=== PATIENT | female | born 1940 ===

== ENCOUNTER 2016-08-26 15:35 | Emergency (ER) | payer MEDICARE ==
[2016-08-26 15:45] VITALS: RESP 18; TEMP 98.1
--- NOTE | 2016-08-26 16:01 | ED PDOC ---
HPI: Headache Time Seen by Provider: 08/26/16 15:51 Chief Complaint (Nursing): Headache Additional Complaint(s): Patient is a 76 y/o F presenting with headache. Patient reports a 4 day history of L parietal/occiptal pain. She reports that the pain is mild but persistent so she presented to the ED. She reports taking a naproxen today with some relief. She reports that the pain is worse when she turns her head to the L. Denies fever, neck pain, vision change, ear pain, dental pain, chest pain, shortness of breath, weakness, numbness or tingling. She denies trauma. Patient had normal MRI in February for vertigo. Denies current symptoms of vertigo Past Medical History Vital Signs: Last Vital Signs Temp 98.1 F 08/26/16 15:42 Pulse 80 08/26/16 15:42 Resp 18 08/26/16 15:42 BP 153/78 H 08/26/16 15:42 Pulse Ox 100 08/26/16 15:42 - Medical History PMH: HTN - Surgical History Surgical History: - Family History Family History: States: Unknown Family Hx - Immunization History Hx Tetanus Toxoid Vaccination: No Hx Influenza Vaccination: No Hx Pneumococcal Vaccination: No - Home Medications Home Medications: Ambulatory Orders Medication Instructions Recorded traMADol [Ultram] 50 mg PO TID PRN #15 tab 04/30/15 - Allergies Allergies/Adverse Reactions: Allergies Allergy/AdvReac Type Severity Reaction Status Date / Time No Known Allergies Allergy Verified 05/21/15 18:31 Physical Exam - Physical Exam Appears: Positive for: Well, Non-toxic, No Acute Distress Head Exam: Positive for: ATRAUMATIC, NORMAL INSPECTION, NORMOCEPHALIC Skin: Positive for: Normal Color Eye Exam: Positive for: Normal appearance, EOMI, PERRL ENT: Positive for: Normal ENT Inspection, TM Is/Are (WNL), Other (no temporal tenderness. muscle spasm to L side of neck). Negative for: Pharyngeal Erythema , Tonsillar Exudate, Tonsillar Swelling Neck: Positive for: Normal, Painless ROM, Supple. Negative for: Pain On Movement Of Neck Cardiovascular/Chest: Positive for: Regular Rate, Rhythm. Negative for: Edema, Murmur Respiratory: Positive for: Normal Breath Sounds. Negative for: Rales, Rhonchi, Stridor Gastrointestinal/Abdominal: Positive for: Soft. Negative for: Tenderness, Mass , Distended Extremity: Positive for: Normal ROM (5/5 strength in upper and lowere extremities) Neurologic/Psych: Positive for: Alert, manager trainee II-XII, Oriented, Gait (steady). Negative for: Facial Droop - Laboratory Results Result Diagrams: 08/26/16 16:40 08/26/16 17:25 - ECG O2 Sat by Pulse Oximetry: 100 Medical Decision Making Medical Decision Making: Patient has mild headache. She is neurologically intact. She is resting in NAD. She has no temporal tenderness and no neuro deficits CT head to r/o mass reglan, tylenol, IVF Labs reeval 6:15PM CT head shows "No acute intracranial abnormalities. No significant findings to account for the clinical presentation.No significant interval change compared to the prior examinations." Patient was also given toradol and valium due to concern over muscle spasm. She reports headache is resolved and wants to go home. I spoke with patient and family at length and gave them detailed return instructions. Disposition - Clinical Impression Clinical Impression: Headache - Disposition Disposition: Routine/Home Disposition Time: 18:16 Condition: GOOD Additional Instructions: Return immediately with any worsening symptoms. Follow-up with PMD within 2 days. Instructions: Acute Headache (ED) Print Language: KYRGYZ
[2016-08-26] MEDS ORDERED: Sodium Chloride 0.9% 500 ML IV ONE (16:02)
--- NOTE | 2016-08-26 17:13 | CT ---
PROCEDURE: CT HEAD WITHOUT CONTRAST. HISTORY: L sided headache COMPARISON: 05/21/2015. TECHNIQUE: Axial computed tomography images were obtained through the head/brain without intravenous contrast. Radiation dose: Total exam DLP = 830.08 mGy-cm. This CT exam was performed using one or more of the following dose reduction techniques: Automated exposure control, adjustment of the mA and/or kV according to patient size, and/or use of iterative reconstruction technique. FINDINGS: HEMORRHAGE: No intracranial hemorrhage. BRAIN: No significant interval change compared to the prior examination(s). No atrophy or chronic microvascular ischemic changes. VENTRICLES: Unremarkable. No hydrocephalus. CALVARIUM: Unremarkable. PARANASAL SINUSES: Unremarkable as visualized. No significant inflammatory changes. MASTOID AIR CELLS: Unremarkable as visualized. No inflammatory changes. OTHER FINDINGS: None. IMPRESSION: No acute intracranial abnormalities. No significant findings to account for the clinical presentation.No significant interval change compared to the prior examination(s).
[2016-08-26 17:37] LABS: BASO % 0.6 % (0.0-2.0); EOS # 0.1 K/uL (0.0-0.7); EOS % 1.8 % (0.0-4.0); HEMOGLOBIN 11.6 g/dL (12.0-16.0); LYMPH # 2.2 K/uL (1.0-4.3); LYMPH % 37.5 % (20.0-40.0); MEAN CELL VOLUME 82.1 fl (81.0-99.0); MEAN CORPUSCULAR HEMOGLOBIN 26.1 pg (27.0-31.0); MEAN CORPUSCULAR HGB CONC 31.8 g/dL (33.0-37.0); MEAN PLATELET VOLUME 9.8 fl (7.2-11.7); MONO # 0.7 K/uL (0.0-0.8); NEUT # 2.9 K/uL (1.8-7.0); NEUT % 49.1 % (50.0-75.0); RBC 4.43 Mil/uL (3.80-5.20); RED CELL DISTRIBUTION WIDTH 15.2 % (11.5-14.5)
[2016-08-26 17:47] LABS: ALB/GLOB RATIO 1.2 (1.0-2.1); ALBUMIN 4.4 g/dL (3.5-5.0); ALT/SGPT 23 U/L (9-52); AST/SGOT 28 U/L (14-36); BLOOD UREA NITROGEN 18 mg/dl (7-17); CALCIUM 9.7 mg/dL (8.4-10.2); GFR AFRICAN-AMERICAN > 60; GFR NON-AFRICAN AMERICAN > 60
[2016-08-26 18:39] VITALS: BP 131/63; PULSE 69
[2016-08-26 18:41] VITALS: O2SAT 100
== END 2016-08-26 18:39 | disposition home or self-care (01) ==
LOC: H.ER 15:35
DX: I10 Essential (primary) hypertension (principal); R51 Headache
CPT/HCPCS: 70450; 80053; 85025; 96361; 96374; 96375; 99284; J1885; J2765; J7040

== ENCOUNTER 2018-06-06 11:06 | Inpatient (IN) | payer MEDICARE ==
[2018-06-06 11:15] VITALS: BMI 27.8
[2018-06-06] MEDS ORDERED: Bacitracin 500 Units/gm Oint Foilpak UD ONE (12:23)
[2018-06-06 12:33] LABS: BASO % 0.9 % (0.0-2.0); HEMOGLOBIN 11.4 g/dL (12.0-16.0); LYMPH # 1.2 K/uL (1.0-4.3); LYMPH % 27.5 % (20.0-40.0); MEAN CELL VOLUME 82.6 fl (81.0-99.0); MEAN CORPUSCULAR HEMOGLOBIN 26.7 pg (27.0-31.0); MEAN CORPUSCULAR HGB CONC 32.4 g/dL (33.0-37.0); MEAN PLATELET VOLUME 9.6 fl (7.2-11.7); MONO # 0.4 K/uL (0.0-0.8); MONO % 9.6 % (0.0-10.0); NEUT # 2.7 K/uL (1.8-7.0); RBC 4.26 Mil/uL (3.80-5.20); RED CELL DISTRIBUTION WIDTH 15.7 % (11.5-14.5); WHITE BLOOD COUNT 4.4 K/uL (4.8-10.8)
[2018-06-06 12:43] LABS: BLOOD UREA NITROGEN 14 mg/dl (7-17); GFR NON-AFRICAN AMERICAN > 60
[2018-06-06 12:44] LABS: ALB/GLOB RATIO 1.3 (1.0-2.1); ALBUMIN 4.4 g/dL (3.5-5.0); ALT/SGPT 17 U/L (9-52); AST/SGOT 29 U/L (14-36); CALCIUM 9.9 mg/dL (8.4-10.2)
--- NOTE | 2018-06-06 13:03 | CT ---
Date of service: 06/06/2018 PROCEDURE: CT HEAD WITHOUT CONTRAST. HISTORY: syncope COMPARISON: 08/26/2016 TECHNIQUE: Axial computed tomography images were obtained through the head/brain without intravenous contrast. Radiation dose: Total exam DLP = 842.57 mGy-cm. This CT exam was performed using one or more of the following dose reduction techniques: Automated exposure control, adjustment of the mA and/or kV according to patient size, and/or use of iterative reconstruction technique. FINDINGS: HEMORRHAGE: No intracranial hemorrhage. BRAIN: No mass effect or edema. No atrophy or chronic microvascular ischemic changes. VENTRICLES: Unremarkable. No hydrocephalus. CALVARIUM: Unremarkable. PARANASAL SINUSES: Unremarkable as visualized. No significant inflammatory changes. MASTOID AIR CELLS: Unremarkable as visualized. No inflammatory changes. OTHER FINDINGS: None. IMPRESSION: Normal CT of the Head. No intracranial mass, hemorrhage or evidence of acute infarct.
--- NOTE | 2018-06-06 13:17 | RAD ---
Date of service: 06/06/2018 HISTORY: Syncope. COMPARISON: No prior. FINDINGS: LUNGS: Atelectasis at the lung bases, linear atelectasis/scarring right upper lobe. PLEURA: No significant pleural effusion identified, no pneumothorax apparent. CARDIOVASCULAR: No atherosclerotic calcification present Normal. OSSEOUS STRUCTURES: No significant abnormalities. VISUALIZED UPPER ABDOMEN: Normal. OTHER FINDINGS: None. IMPRESSION: No active disease.
--- NOTE | 2018-06-06 13:46 | ED PDOC ---
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 Patient reports she felt dizzy and fell on someone without any head injury or falling to the ground. She takes 81mg Aspirin per day. Also reports, prior to the fall, she felt a sharp electric pain on her leg that resolved immediately. Otherwise, she denies any recent illness, chest pain, nausea, vomiting, diarrhea or abdominal pain. PMD: Non [facility] Provider Past Medical History Reviewed: Historical Data, Nursing Documentation, Vital Signs Vital Signs: Last Vital Signs Temp 98.4 F 06/06/18 11:14 Pulse 62 06/06/18 11:14 Resp 19 06/06/18 11:14 BP 122/66 06/06/18 11:14 Pulse Ox 99 06/06/18 11:14 - Medical History PMH: HTN Other PMH: vertigo - Surgical History Surgical History: - Family History Family History: States: Unknown Family Hx - Social History Current smoker - smoking cessation education provided: No Alcohol: None Drugs: Denies - Immunization History Hx Tetanus Toxoid Vaccination: No Hx Influenza Vaccination: No Hx Pneumococcal Vaccination: No - Home Medications Home Medications: Ambulatory Orders Medication Instructions Recorded Aspirin [Ecotrin] 81 mg PO Q48H 06/06/18 Ergocalciferol (Vitamin D2) 50,000 unit PO SUN 06/06/18 [Vitamin D2] Meclizine [Meclizine*] 25 mg PO Q8 PRN 06/06/18 Rosuvastatin Calcium [Crestor] 5 mg PO HS 06/06/18 Timolol 0.5% Ophth [Timoptic 0.5% 1 drop EACHEYE DAILY 06/06/18 Ophth Soln] amLODIPine [Norvasc] 10 mg PO DAILY 06/06/18 - Allergies Allergies/Adverse Reactions: Allergies Allergy/AdvReac Type Severity Reaction Status Date / Time No Known Allergies Allergy Verified 04/06/16 18:31 Review of Systems ROS Statement: Except As Marked, All Systems Reviewed And Found Negative Cardiovascular: Negative for: Chest Pain Respiratory: Negative for: Shortness of Breath Gastrointestinal: Negative for: Nausea, Vomiting, Abdominal Pain, Diarrhea Musculoskeletal: Negative for: Back Pain Neurological: Positive for: Dizziness, Other (syncope ) Physical Exam - Reviewed Nursing Documentation Reviewed: Yes Vital Signs Reviewed: Yes - Physical Exam Appears: Positive for: Well, Non-toxic, No Acute Distress Head Exam: Positive for: ATRAUMATIC, NORMAL INSPECTION, NORMOCEPHALIC Skin: Positive for: Normal Color, Warm, Dry. Negative for: Rash Eye Exam: Positive for: EOMI, Normal appearance, PERRL ENT: Positive for: Normal ENT Inspection Neck: Positive for: Normal, Painless ROM, Supple. Negative for: Decreased ROM Cardiovascular/Chest: Positive for: Regular Rate, Rhythm. Negative for: Murmur Respiratory: Positive for: Normal Breath Sounds. Negative for: Respiratory Distress Gastrointestinal/Abdominal: Positive for: Normal Exam, Soft. Negative for: Tenderness Back: Positive for: Normal Inspection Extremity: Positive for: Normal ROM. Negative for: Tenderness, Pedal Edema, Deformity Neurological/Psych: Positive for: Awake, Alert, Normal Tone, Symmetric/Intact Strength, Oriented (x3), Gait (steady), kitchen and bath designer II-XII (intact). Negative for: Lethargic, Listless, Motor/Sensory Deficits, Facial Droop - Laboratory Results Result Diagrams: 06/06/18 12:29 06/06/18 12:29 Lab Results: Troponin I < 0.0120 ng/mL (0.00-0.120) 06/06/18 12:29 Total Bilirubin 0.4 mg/dl (0.2-1.3) 06/06/18 12:29 AST 29 U/L (14-36) 06/06/18 12:29 ALT 17 U/L (9-52) 06/06/18 12:29 Alkaline Phosphatase 71 U/L (38-126) 06/06/18 12:29 Total Protein 7.7 G/DL (6.3-8.2) 06/06/18 12:29 Albumin 4.4 g/dL (3.5-5.0) 06/06/18 12:29 Globulin 3.3 gm/dL (2.2-3.9) 06/06/18 12:29 Albumin/Globulin Ratio 1.3 (1.0-2.1) 06/06/18 12:29 - ECG O2 Sat by Pulse Oximetry: 99 (RA) Pulse Ox Interpretation: Normal Medical Decision Making Medical Decision Making: Time: 12:07 Impression: syncope rule out neurologic vs cardiac Plan: Head w/o contrast CT CMP Troponin CBC w/ differential Chest portable [RAD] Reevaluation 12:59 PROCEDURE: CT HEAD WITHOUT CONTRAST. HISTORY: syncope COMPARISON: 08/26/2016 TECHNIQUE: Axial computed tomography images were obtained through the head/brain without intravenous contrast. Radiation dose: Total exam DLP = 842.57 mGy-cm. This CT exam was performed using one or more of the following dose reduction techniques: Automated exposure control, adjustment of the mA and/or kV according to patient size, and/or use of iterative reconstruction technique. FINDINGS: HEMORRHAGE: No intracranial hemorrhage. BRAIN: No mass effect or edema. No atrophy or chronic microvascular ischemic changes. VENTRICLES: Unremarkable. No hydrocephalus. CALVARIUM: Unremarkable. PARANASAL SINUSES: Unremarkable as visualized. No significant inflammatory changes. MASTOID AIR CELLS: Unremarkable as visualized. No inflammatory changes. OTHER FINDINGS: None. IMPRESSION: Normal CT of the Head. No intracranial mass, hemorrhage or evidence of acute infarct. 13:14 FINDINGS: LUNGS: Atelectasis at the lung bases, linear atelectasis/scarring right upper lobe. PLEURA: No significant pleural effusion identified, no pneumothorax apparent. CARDIOVASCULAR: No atherosclerotic calcification present Normal. OSSEOUS STRUCTURES: No significant abnormalities. VISUALIZED UPPER ABDOMEN: Normal. OTHER FINDINGS: None. IMPRESSION: No active disease. 13:26 labs reviewed Case discussed with Dr. Rodriguez who covers Dr pulido pts pcp, who requested neurology consult with Dr. Antony and Dr. Giles for cardiology consult. Patient will be admitted for syncope. i explained plan to patient who understood and agreeable. Scribe Attestation: Documented by Zain Willoughby, acting as a scribe for Prem Edwards MD. Provider Scribe Attestation: All medical record entries made by the Scribe were at my direction and personally dictated by me. I have reviewed the chart and agree that the record accurately reflects my personal performance of the history, physical exam, medical decision making, and the department course for this patient. I have also personally directed, reviewed, and agree with the discharge instructions and disposition. Disposition - Clinical Impression Clinical Impression: Syncope - Patient ED Disposition Is Patient to be Admitted: Yes Counseled Patient/Family Regarding: Studies Performed, Diagnosis - Disposition Disposition Time: 01:26 Condition: STABLE
--- NOTE | 2018-06-06 16:35 | CP.PCM.CON ---
History of Present Illness - History of Present Illness History of Present Illness: Consultation for syncope HPI 78-year-old female with history of vertigo who brought to the emergency room after having an episode of syncope patient apparently felt dizzy and fell on somewhat without having sustaining any head injury or falling to the ground. Prior to the fall patient had an episode of sharp electrical pain radiating down the leg otherwise denies having any recent episodes of illness chest pain nausea vomiting diarrhea abdominal discomfort. Patient's home medications include Norvasc 10 mg p.o. daily Crestor 5 mg aspirin 81 mg meclizine vitamin D 2 NT model eyedrops. Patient apparently fell down and hit her knee and lost consciousness for a few minutes. [place] a little nauesous after she woke up Review of Systems - Review of Systems Systems not reviewed;Unavailable: Acuity of Condition - Constitutional Constitutional: As Per HPI - EENT Eyes: As Per HPI Ears: As Per HPI Nose/Mouth/Throat: As Per HPI - Breasts Breasts: As Per HPI - Cardiovascular Cardiovascular: As Per HPI - Respiratory Respiratory: As Per HPI - Gastrointestinal Gastrointestinal: As Per HPI - Genitourinary Genitourinary: As Per HPI - Reproductive: Female Reproductive:Female: As Per HPI - Menstruation Menstruation: As Per HPI - Musculoskeletal Musculoskeletal: As Per HPI - Integumentary Integumentary: As Per HPI - Neurological Neurological: As Per HPI - Psychiatric Psychiatric: As Per HPI - Endocrine Endocrine: As Per HPI - Hematologic/Lymphatic Hematologic: As Per HPI Past Patient History - Past Social History Alcohol: None Drugs: Denies - CARDIAC Hx Hypertension: Yes - PSYCHIATRIC Hx Substance Use: No Meds Allergies/Adverse Reactions: Allergies Allergy/AdvReac Type Severity Reaction Status Date / Time No Known Allergies Allergy Verified 05/21/15 18:31 Physical Exam - Constitutional Appears: Well - Head Exam Head Exam: ATRAUMATIC, NORMAL INSPECTION, NORMOCEPHALIC - Eye Exam Eye Exam: EOMI, Normal appearance, PERRL Pupil Exam: NORMAL ACCOMODATION, PERRL - ENT Exam ENT Exam: Mucous Membranes Moist, Normal Exam - Neck Exam Neck exam: Positive for: Normal Inspection - Respiratory Exam Respiratory Exam: Clear to Auscultation Bilateral, NORMAL BREATHING PATTERN - Cardiovascular Exam Cardiovascular Exam: REGULAR RHYTHM, RRR, +S1, +S2, Systolic Murmur - GI/Abdominal Exam GI & Abdominal Exam: Normal Bowel Sounds, Soft. absent: Tenderness - Extremities Exam Extremities exam: Positive for: normal inspection - Back Exam Back exam: NORMAL INSPECTION - Neurological Exam Neurological exam: Alert, CN II-XII Intact, Normal Gait, Oriented x3, Reflexes Normal - Psychiatric Exam Psychiatric exam: Normal Affect, Normal Mood - Skin Skin Exam: Dry, Intact, Normal Color, Warm Results - Vital Signs Recent Vital Signs: Last Vital Signs Temp 98.1 F 06/06/18 15:06 Pulse 72 06/06/18 15:06 Resp 20 06/06/18 15:06 BP 121/57 L 06/06/18 15:06 Pulse Ox 99 06/06/18 16:07 - Labs Result Diagrams: 06/07/18 04:55 06/07/18 04:55 Labs: Laboratory Results - last 24 hr 06/06/18 06/06/18 12:29 12:29 WBC 4.4 L RBC 4.26 Hgb 11.4 L Hct 35.2 MCV 82.6 MCH 26.7 L MCHC 32.4 L RDW 15.7 H Plt Count 196 MPV 9.6 Neut % (Auto) 61.0 Lymph % (Auto) 27.5 [place] % (Auto) 9.6 Eos % (Auto) 1.0 Baso % (Auto) 0.9 Neut # (Auto) 2.7 Lymph # (Auto) 1.2 [place] # (Auto) 0.4 Eos # (Auto) 0.0 Baso # (Auto) 0.0 Sodium 138 Potassium 5.1 H Chloride 102 Carbon Dioxide 28 Anion Gap 13 BUN 14 Creatinine 0.8 Est GFR ( Amer) > 60 Est GFR (Non-Af Amer) > 60 Random Glucose 120 H Calcium 9.9 Total Bilirubin 0.4 AST 29 ALT 17 Alkaline Phosphatase 71 Troponin I < 0.0120 Total Protein 7.7 Albumin 4.4 Globulin 3.3 Albumin/Globulin Ratio 1.3 Assessment & Plan (1) Syncope Assessment and Plan: echo telemetry orthostatics Status: Acute (2) HTN (hypertension) Status: Acute (3) Contusion, lip Status: Acute (4) Knee contusion Status: Acute (5) Pain of left lower extremity Status: Acute
[2018-06-06 18:59] LABS: URINE BILIRUBIN NEGATIVE (NEGATIVE); URINE BLOOD NEGATIVE (NEGATIVE); URINE CLARITY CLEAR (Clear); URINE COLOR STRAW (YELLOW); URINE GLUCOSE (UA) NEG (NEGATIVE); URINE LEUKOCYTE ESTERASE NEG Leu/uL (Negative); URINE PROTEIN NEGATIVE (NEGATIVE); URINE UROBILINOGEN 0.2-1.0 mg/dL (0.2-1.0)
[2018-06-07 05:44] LABS: BASO % 0.6 % (0.0-2.0); BLOOD UREA NITROGEN 14 mg/dl (7-17); CALCIUM 9.8 mg/dL (8.4-10.2); EOS # 0.1 K/uL (0.0-0.7); EOS % 1.4 % (0.0-4.0); GFR NON-AFRICAN AMERICAN > 60; HDL CHOLESTEROL 53 MG/DL (30-70); HEMOGLOBIN 11.4 g/dL (12.0-16.0); LYMPH # 1.8 K/uL (1.0-4.3); LYMPH % 39.5 % (20.0-40.0); MEAN CELL VOLUME 82.3 fl (81.0-99.0); MEAN CORPUSCULAR HEMOGLOBIN 26.5 pg (27.0-31.0); MEAN CORPUSCULAR HGB CONC 32.2 g/dL (33.0-37.0); MONO # 0.4 K/uL (0.0-0.8); MONO % 9.5 % (0.0-10.0); NEUT # 2.3 K/uL (1.8-7.0); NRBC % 0.1 % (0.0-0.0); RBC 4.29 Mil/uL (3.80-5.20); RED CELL DISTRIBUTION WIDTH 15.6 % (11.5-14.5); WHITE BLOOD COUNT 4.7 K/uL (4.8-10.8)
[2018-06-07 05:54] LABS: LDL CHOLESTEROL 118 mg/dL (0-129)
[2018-06-07] MEDS: Enoxaparin 40 mg Syringe SC SCH (08:00)
--- NOTE | 2018-06-07 08:30 | CP.PCM.HP ---
<Tim Hollis - Last Filed: 06/07/18 14:47> History of Present Illness - History of Present Illness History of Present Illness: 78 y/o F with a PMHx of HTN and HLD was admitted due to syncopal episode yesterday morning ~10am. Pt explains feeling dizzy and sharp pain fron L ankle to L knee while sitting down, then fell to the ground on her L knee. Pt believes she lost consciousness for a few seconds. Pt felt nauseous and vomited after episode. Pt reports a similar previous episode 1 year ago. Pt lives alone. Pt denies fever, chills, cough, chest pain, SOB, abdominal pain, rash or peripheral edema. NKDA PMD: Dr Kevin PMHx: HTN, HLD, vertigo PSHx: 1x, L breast lumpectomy. SHx: Never tobacco, no alcohol and no rec drugs. Pt lives alone and reports being a [employer]. ED Course: --VS stable at presentation --CXR: No active disease. --Head CT: No intracranial mass, hemorrhage or evidence of acute infarct. Present on Admission - Present on Admission Any Indicators Present on Admission: No Review of Systems - Constitutional Constitutional: absent: Chills, Fever, Lethargy, Malaise, Weight Loss - EENT Eyes: absent: Blurred Vision, Change in Vision Nose/Mouth/Throat: absent: Nasal Congestion, Sore Throat, Neck Mass - Cardiovascular Cardiovascular: absent: Chest Pain, Claudication, Dyspnea - Respiratory Respiratory: absent: Cough, Dyspnea - Gastrointestinal Gastrointestinal: absent: Abdominal Pain, Diarrhea, Nausea, Vomiting - Genitourinary Genitourinary: absent: Dysuria, Flank Pain Past Patient History - Past Medical History & Family History Past Medical History?: Yes - Past Social History Smoking Status: Never Smoked - CARDIAC Hx Hypertension: Yes - HEMATOLOGICAL/ONCOLOGICAL Hx AIDS: No Hx Human Immunodeficiency Virus (HIV): No - MUSCULOSKELETAL/RHEUMATOLOGICAL Hx Falls: No - PSYCHIATRIC Hx Substance Use: No - ANESTHESIA Hx Anesthesia: No Hx Anesthesia Reactions: No Hx Malignant Hyperthermia: No Has any member of the family had a problem w/ anesthesia?: No Meds Allergies/Adverse Reactions: Allergies Allergy/AdvReac Type Severity Reaction Status Date / Time No Known Allergies Allergy Verified 05/21/15 18:31 Physical Exam - Constitutional Appears: No Acute Distress - Head Exam Head Exam: ATRAUMATIC, NORMAL INSPECTION - Eye Exam Eye Exam: EOMI - ENT Exam ENT Exam: Mucous Membranes Moist - Neck Exam Neck exam: Positive for: Full Rom, Normal Inspection. Negative for: Lymphadenopathy, Thyromegaly - Respiratory Exam Respiratory Exam: NORMAL BREATHING PATTERN. absent: Rales, Rhonchi, Wheezes - Cardiovascular Exam Cardiovascular Exam: +S1, +S2 - GI/Abdominal Exam GI & Abdominal Exam: Soft. absent: Distended, Guarding, Rebound, Tenderness - Extremities Exam Extremities exam: Positive for: full ROM. Negative for: calf tenderness, pedal edema, tenderness - Neurological Exam Neurological exam: Alert, Oriented x3 Results - Vital Signs Recent Vital Signs: Last Vital Signs Temp 98.2 F 06/07/18 07:51 Pulse 69 06/07/18 07:51 Resp 18 06/07/18 07:51 BP 119/53 L 06/07/18 07:51 Pulse Ox 95 06/07/18 07:51 - Labs Result Diagrams: 06/07/18 04:55 06/07/18 04:55 Labs: Laboratory Results - last 24 hr 06/06/18 06/06/18 06/06/18 12:29 12:29 18:45 WBC 4.4 L RBC 4.26 Hgb 11.4 L Hct 35.2 MCV 82.6 MCH 26.7 L MCHC 32.4 L RDW 15.7 H Plt Count 196 MPV 9.6 Neut % (Auto) 61.0 Lymph % (Auto) 27.5 [place] % (Auto) 9.6 Eos % (Auto) 1.0 Baso % (Auto) 0.9 Neut # (Auto) 2.7 Lymph # (Auto) 1.2 [place] # (Auto) 0.4 Eos # (Auto) 0.0 Baso # (Auto) 0.0 Sodium 138 Potassium 5.1 H Chloride 102 Carbon Dioxide 28 Anion Gap 13 BUN 14 Creatinine 0.8 Est GFR ( Amer) > 60 Est GFR (Non-Af Amer) > 60 Random Glucose 120 H Calcium 9.9 Total Bilirubin 0.4 AST 29 ALT 17 Alkaline Phosphatase 71 Troponin I < 0.0120 Total Protein 7.7 Albumin 4.4 Globulin 3.3 Albumin/Globulin Ratio 1.3 Triglycerides Cholesterol LDL Cholesterol Direct HDL Cholesterol Vitamin B12 Urine Color Straw Urine Clarity Clear Urine pH 7.0 Ur Specific [place] 1.010 Urine Protein Negative Urine Glucose (UA) Neg Urine Ketones Negative Urine Blood Negative Urine Nitrate Negative Urine Bilirubin Negative Urine Urobilinogen 0.2-1.0 Ur Leukocyte Esterase Neg Urine Microscopic WBC 2 06/06/18 06/07/18 06/07/18 20:18 04:55 04:55 WBC 4.7 L RBC 4.29 Hgb 11.4 L Hct 35.3 MCV 82.3 MCH 26.5 L MCHC 32.2 L RDW 15.6 H Plt Count 195 MPV 10.0 Neut % (Auto) 49.0 L Lymph % (Auto) 39.5 [place] % (Auto) 9.5 Eos % (Auto) 1.4 Baso % (Auto) 0.6 Neut # (Auto) 2.3 Lymph # (Auto) 1.8 [place] # (Auto) 0.4 Eos # (Auto) 0.1 Baso # (Auto) 0.0 Sodium 140 Potassium 4.2 Chloride 102 Carbon Dioxide 29 Anion Gap 13 BUN 14 Creatinine 0.7 Est GFR ( Amer) > 60 Est GFR (Non-Af Amer) > 60 Random Glucose 118 H Calcium 9.8 Total Bilirubin AST ALT Alkaline Phosphatase Troponin I < 0.0120 Total Protein Albumin Globulin Albumin/Globulin Ratio Triglycerides 88 Cholesterol 203 H LDL Cholesterol Direct 118 HDL Cholesterol 53 Vitamin B12 221 L Urine Color Urine Clarity Urine pH Ur Specific [place] Urine Protein Urine Glucose (UA) Urine Ketones Urine Blood Urine Nitrate Urine Bilirubin Urine Urobilinogen Ur Leukocyte Esterase Urine Microscopic WBC Assessment & Plan - Assessment and Plan (Free Text) Assessment: 78 y/o F with a PMHx of HTN and HLD was admitted for evaluation and management of syncope. --Head CT: No intracranial mass, hemorrhage or evidence of acute infarct. --Troponin negative x2. PLAN: >Syncope --Afebrile, VSS, tolerating PO --Cardiology consult, Dr Giles --Neurology consult, Dr Antony --Physical therapy, eval and treat --MRI Brain --US bilateral carotids --Echocardiogram --Electroencephalogram --HbA1c, thyroid panel ordered --F/U recommendations from specialist. >Mild normocytic anemia --Hgb 11.4-low. --Possibly dietary etiology, pt already deficient on vitamin B12. --F/U anemia work up. >Leukopenia/Neutropenia --Unknown etiology --WBC 4.7 --F/U CBC and HIV. >HTN --Chronic --Controlled >HLD --Home meds resumed --F/U lipid panel. >Vitamin B12 deficiency --IM Cyanocobalamin daily >DVT Prophylaxis --Lovenox SC daily. Case discussed with Dr Jennifer Hollis PGY-2 <Tirso Rodriguez - Last Filed: 06/11/18 11:38> Results - Vital Signs Recent Vital Signs: Last Vital Signs Temp 98.2 F 06/11/18 08:00 Pulse 62 06/11/18 08:00 Resp 18 06/11/18 08:00 BP 121/72 06/11/18 08:00 Pulse Ox 100 06/11/18 08:00 - Labs Result Diagrams: 06/08/18 05:00 06/08/18 05:00 Labs: Laboratory Results - last 24 hr 06/10/18 13:00 Stool Occult Blood Negative Assessment & Plan - Assessment and Plan (Free Text) Assessment: Patient was personally seen and examined by me in rounds with residents. Available labs and diagnostic data reviewed. Case, Patient's condition and management plan discussed with residents in rounds. Agree with resident's progress note. Plan: As ordered.
[2018-06-07 10:58] LABS: T3 1.16 nmol/L (1.49-2.60)
--- NOTE | 2018-06-07 12:03 | MRI ---
Date of service: 06/07/2018 PROCEDURE: MRI BRAIN WITHOUT CONTRAST HISTORY: Syncope COMPARISON: CT head without contrast from 06/06/2018. TECHNIQUE: Multiplanar, multisequence MR images of the brain were obtained without intravenous contrast enhancement. FINDINGS: HEMORRHAGE: None DWI: No evidence of an acute or early subacute infarction. BRAIN PARENCHYMA: There are multiple T2/FLAIR hyperintense foci in the subcortical white matter and more confluent T2/FLAIR hyperintensities in the periventricular white matter. There is no mass, mass effect or abnormal extra-axial fluid collection. Midline sagittal structures are VENTRICLES: There is mild age-related global parenchymal volume loss and proportionate enlargement of the ventricles and cortical sulci. There is a small right retro cerebellar arachnoid granulation. CRANIUM: There is normal bone marrow signal pattern. ORBITS: Grossly unremarkable. PARANASAL SINUSES/MASTOIDS: Predominantly clear. VASCULAR SYSTEM: There are normal signal voids in the larger intracranial arteries. OTHER FINDINGS: None. IMPRESSION: 1. No acute intracranial abnormality. 2. Moderate supratentorial and periventricular white matter changes are strictly nonspecific but statistically in this age group most compatible with moderate chronic microangiopathic changes. 3. Mild age-related global parenchymal volume loss.
--- NOTE | 2018-06-07 15:18 | CP.PCM.PN ---
Subjective - Date & Time of Evaluation Date of Evaluation: 06/07/18 Time of Evaluation: 15:16 - Subjective Subjective: getting EEG telemetry stable echo no VHD Objective - Vital Signs/Intake and Output Vital Signs (last 24 hours): Temp Pulse Resp BP Pulse Ox 98.6 F 67 18 110/64 96 06/07/18 11:49 06/07/18 11:49 06/07/18 11:49 06/07/18 11:49 06/07/18 11:49 - Medications Medications: Current Medications Acetaminophen (Tylenol 325mg Tab) 650 mg PO Q4 PRN PRN Reason: Pain, severe (8-10) Aspirin (Ecotrin) 81 mg PO Q48H [facility] Atorvastatin Calcium (Lipitor) 10 mg PO HS [facility] Cyanocobalamin (Vitamin B12 1000 Mcg/Ml Inj) 1,000 mcg SC DAILY [facility] Last Admin: 06/07/18 11:38 Dose: 1,000 mcg Enoxaparin Sodium (Lovenox) 40 mg SC DAILY [facility]; Protocol Last Admin: 06/07/18 08:00 Dose: 40 mg Ergocalciferol (Drisdol 50,000 Intl Units Cap) 1 cap PO SUN [facility] Meclizine HCl (Antivert) 25 mg PO Q8 PRN PRN Reason: Dizziness Timolol Maleate (Timoptic 0.5% Oph Sol) 1 drop OU DAILY [facility] Last Admin: 06/07/18 08:00 Dose: 1 drop - Labs Labs: 06/07/18 04:55 06/07/18 04:55 - Constitutional Appears: Well - Head Exam Head Exam: ATRAUMATIC, NORMAL INSPECTION, NORMOCEPHALIC - Eye Exam Eye Exam: EOMI, Normal appearance, PERRL Pupil Exam: NORMAL ACCOMODATION, PERRL - ENT Exam ENT Exam: Mucous Membranes Moist, Normal Exam - Neck Exam Neck Exam: Full ROM, Normal Inspection. absent: Lymphadenopathy - Respiratory Exam Respiratory Exam: Clear to Ausculation Bilateral, NORMAL BREATHING PATTERN - Cardiovascular Exam Cardiovascular Exam: REGULAR RHYTHM, +S1, +S2. absent: Murmur - GI/Abdominal Exam GI & Abdominal Exam: Soft, Normal Bowel Sounds. absent: Tenderness - Extremities Exam Extremities Exam: Full ROM, Normal Capillary Refill, Normal Inspection. absent: Joint Swelling, Pedal Edema - Back Exam Back Exam: NORMAL INSPECTION - Neurological Exam Neurological Exam: Alert, Awake, CN II-XII Intact, Normal Gait, Oriented x3 - Psychiatric Exam Psychiatric exam: Normal Affect, Normal Mood - Skin Skin Exam: Dry, Intact, Normal Color, Warm Assessment and Plan (1) Syncope Assessment & Plan: echo reviewed orthostatics plan for stress test in am npo p mn Status: Acute (2) HTN (hypertension) Assessment & Plan: hold norvasc Status: Acute (3) Contusion, lip Status: Acute (4) Knee contusion Status: Acute (5) Pain of left lower extremity Status: Acute
--- NOTE | 2018-06-07 16:04 | CP.PCM.CON ---
History of Present Illness - History of Present Illness History of Present Illness: Neurology consult dictated. Miss Johnson has a normal neurology exam and MRI shows white matter disease. PLan; 1. Vestibular therapy 2. No further recommendations. Thank you Dr. sandoval Neurology Past Patient History - Past Medical History & Family History Past Medical History?: Yes - Past Social History Smoking Status: Never Smoked - CARDIAC Hx Hypertension: Yes - HEMATOLOGICAL/ONCOLOGICAL Hx AIDS: No Hx Human Immunodeficiency Virus (HIV): No - MUSCULOSKELETAL/RHEUMATOLOGICAL Hx Falls: No - PSYCHIATRIC Hx Substance Use: No - ANESTHESIA Hx Anesthesia: No Hx Anesthesia Reactions: No Hx Malignant Hyperthermia: No Has any member of the family had a problem w/ anesthesia?: No Meds Allergies/Adverse Reactions: Allergies Allergy/AdvReac Type Severity Reaction Status Date / Time No Known Allergies Allergy Verified 05/21/15 18:31 - Medications Medications: Current Medications Acetaminophen (Tylenol 325mg Tab) 650 mg PO Q4 PRN PRN Reason: Pain, severe (8-10) Aspirin (Ecotrin) 81 mg PO Q48H [facility] Atorvastatin Calcium (Lipitor) 10 mg PO HS [facility] Cyanocobalamin (Vitamin B12 1000 Mcg/Ml Inj) 1,000 mcg SC DAILY [facility] Last Admin: 06/07/18 11:38 Dose: 1,000 mcg Enoxaparin Sodium (Lovenox) 40 mg SC DAILY [facility]; Protocol Last Admin: 06/07/18 08:00 Dose: 40 mg Ergocalciferol (Drisdol 50,000 Intl Units Cap) 1 cap PO SUN [facility] Meclizine HCl (Antivert) 25 mg PO Q8 PRN PRN Reason: Dizziness Timolol Maleate (Timoptic 0.5% [facility]) 1 drop OU DAILY [facility] Last Admin: 06/07/18 08:00 Dose: 1 drop Results - Vital Signs Recent Vital Signs: Last Vital Signs Temp 98.1 F 06/07/18 15:51 Pulse 62 06/07/18 15:51 Resp 18 06/07/18 15:51 BP 103/65 06/07/18 15:51 Pulse Ox 96 06/07/18 15:51 - Labs Result Diagrams: 06/07/18 04:55 06/07/18 04:55 Labs: Laboratory Results - last 24 hr 06/06/18 06/06/18 06/07/18 18:45 20:18 04:55 WBC 4.7 L RBC 4.29 Hgb 11.4 L Hct 35.3 MCV 82.3 MCH 26.5 L MCHC 32.2 L RDW 15.6 H Plt Count 195 MPV 10.0 Neut % (Auto) 49.0 L Lymph % (Auto) 39.5 Warren % (Auto) 9.5 Eos % (Auto) 1.4 Baso % (Auto) 0.6 Neut # (Auto) 2.3 Lymph # (Auto) 1.8 Warren # (Auto) 0.4 Eos # (Auto) 0.1 Baso # (Auto) 0.0 Sodium Potassium Chloride Carbon Dioxide Anion Gap BUN Creatinine Est GFR ( Amer) Est GFR (Non-Af Amer) Random Glucose Calcium Troponin I < 0.0120 Triglycerides Cholesterol LDL Cholesterol Direct HDL Cholesterol Vitamin B12 Thyroxine (T4) Total T3 TSH 3rd Generation Urine Color Straw Urine Clarity Clear Urine pH 7.0 Ur Specific [place] 1.010 Urine Protein Negative Urine Glucose (UA) Neg Urine Ketones Negative Urine Blood Negative Urine Nitrate Negative Urine Bilirubin Negative Urine Urobilinogen 0.2-1.0 Ur Leukocyte Esterase Neg Urine Microscopic WBC 2 06/07/18 06/07/18 04:55 09:38 WBC RBC Hgb Hct MCV MCH MCHC RDW Plt Count MPV Neut % (Auto) Lymph % (Auto) Warren % (Auto) Eos % (Auto) Baso % (Auto) Neut # (Auto) Lymph # (Auto) Warren # (Auto) Eos # (Auto) Baso # (Auto) Sodium 140 Potassium 4.2 Chloride 102 Carbon Dioxide 29 Anion Gap 13 BUN 14 Creatinine 0.7 Est GFR ( Amer) > 60 Est GFR (Non-Af Amer) > 60 Random Glucose 118 H Calcium 9.8 Troponin I Triglycerides 88 Cholesterol 203 H LDL Cholesterol Direct 118 HDL Cholesterol 53 Vitamin B12 221 L Thyroxine (T4) 8.89 Total T3 1.16 L TSH 3rd Generation 2.46 Urine Color Urine Clarity Urine pH Ur Specific [place] Urine Protein Urine Glucose (UA) Urine Ketones Urine Blood Urine Nitrate Urine Bilirubin Urine Urobilinogen Ur Leukocyte Esterase Urine Microscopic WBC
--- NOTE | 2018-06-07 19:43 | CARD ---
APPROVED REPORT Date of service: 06/07/2018 EKG Measurement Heart [id number] <Conclusion> Normal sinus rhythm Normal ECG
--- NOTE | 2018-06-08 03:51 | CON ---
DATE: 06/07/2018 Neurology consult called by Dr. Tirso Rodriguez. HISTORY OF PRESENT ILLNESS: Ms. Johnson is a 78-year-old woman with past medical history of vertigo, who had an episode of syncope where she felt dizzy and lightheaded and the room was spinning with no otalgia, no difficulty with hearing, no prior head trauma, and no MVA. The patient has sharp electrical pain radiating down her thigh. Otherwise, she denies nausea, vomiting, headache, dysarthria, aphasia, or weakness. In the ER, she continued to be dizzy and was admitted to [facility]. The patient has past medical history of high blood pressure, is on Norvasc and Crestor. She does state that she fell down and hit her knee and lost consciousness for a few minutes. REVIEW OF SYSTEMS: Today is positive for malaise and dizziness. PAST MEDICAL HISTORY: Hypertension and hypercholesterol. PAST SURGICAL HISTORY: None. FAMILY AND SOCIAL HISTORY: Noncontributory. ALLERGIES: NO KNOWN DRUG ALLERGIES. PHYSICAL EXAMINATION: NEUROLOGIC: The patient has a normal neurological examination, alert and oriented x3. Cranial nerves II though XII are normal. Pupils equal, round, and reactive to light. Speech is fluent. Cranial nerves II through XII are normal. Motor is 5/5. Strength intact to fine touch, pin, position. Cerebellar, [id number] shows no dysmetria. Gait is normal. Reflexes are +2 upper and lower limbs bilaterally. Gait is a little bit ataxic, but she is able to correct herself. LABORATORY DATA: Hemoglobin is 11, white count 4.7. Chemistry is normal. MRI of the brain did show white matter disease. EEG is pending so far. IMPRESSION: This is a 78-year-old woman with most likely vasovagal syncope. So far, neurological imaging is normal. PLAN: Recommend vestibular therapy. No further recommendation at this point. Thank you for this interesting consult. Lila Antony MD
[2018-06-08 05:33] LABS: BLOOD UREA NITROGEN 16 mg/dl (7-17); CALCIUM 9.5 mg/dL (8.4-10.2); GFR NON-AFRICAN AMERICAN > 60
[2018-06-08 06:04] LABS: FERRITIN 13.1 ng/Ml (11.1-264.0)
[2018-06-08 06:42] LABS: BASO % 0.6 % (0.0-2.0); EOS # 0.1 K/uL (0.0-0.7); EOS % 2.5 % (0.0-4.0); HEMOGLOBIN 11.1 g/dL (12.0-16.0); LYMPH # 2.5 K/uL (1.0-4.3); LYMPH % 53.7 % (20.0-40.0); MEAN CELL VOLUME 82.9 fl (81.0-99.0); MEAN CORPUSCULAR HEMOGLOBIN 26.4 pg (27.0-31.0); MEAN CORPUSCULAR HGB CONC 31.9 g/dL (33.0-37.0); MEAN PLATELET VOLUME 10.1 fl (7.2-11.7); MONO # 0.5 K/uL (0.0-0.8); MONO % 11.8 % (0.0-10.0); NEUT # 1.4 K/uL (1.8-7.0); NEUT % 31.4 % (50.0-75.0); NRBC % 0.1 % (0.0-0.0); RBC 4.19 Mil/uL (3.80-5.20); RED CELL DISTRIBUTION WIDTH 15.6 % (11.5-14.5); WHITE BLOOD COUNT 4.6 K/uL (4.8-10.8)
--- NOTE | 2018-06-08 07:15 | CP.PCM.PN ---
<Tim Hollis - Last Filed: 06/08/18 07:09> Subjective - Date & Time of Evaluation Date of Evaluation: 06/08/18 Time of Evaluation: 06:40 - Subjective Subjective: 78 y/o F was seen and examined by bedside with Dr Rodriguez. Pt report feeling well. Pt denies headache, fever, chills, chest pain, SOB, abdominal pain, nausea or vomiting. Pt afebrile, tolerating PO with NO acute events overnight. Objective - Vital Signs/Intake and Output Vital Signs (last 24 hours): Temp Pulse Resp BP Pulse Ox 98.2 F 66 16 104/61 97 06/08/18 05:00 06/08/18 05:00 06/08/18 05:00 06/08/18 05:00 06/08/18 05:00 - Medications Medications: Current Medications Acetaminophen (Tylenol 325mg Tab) 650 mg PO Q4 PRN PRN Reason: Pain, severe (8-10) Aspirin (Ecotrin) 81 mg PO Q48H [facility] Last Admin: 06/07/18 21:32 Dose: 81 mg Atorvastatin Calcium (Lipitor) 10 mg PO HS [facility] Last Admin: 06/07/18 21:32 Dose: 10 mg Cyanocobalamin (Vitamin B12 1000 Mcg/Ml Inj) 1,000 mcg SC DAILY [facility] Last Admin: 06/07/18 11:38 Dose: 1,000 mcg Enoxaparin Sodium (Lovenox) 40 mg SC DAILY [facility]; Protocol Last Admin: 06/07/18 08:00 Dose: 40 mg Ergocalciferol (Drisdol 50,000 Intl Units Cap) 1 cap PO SUN [facility] Meclizine HCl (Antivert) 25 mg PO Q8 PRN PRN Reason: Dizziness Timolol Maleate (Timoptic 0.5% Ophth Soln) 1 drop OU DAILY [facility] Last Admin: 06/07/18 08:00 Dose: 1 drop - Labs Labs: 06/08/18 05:00 06/08/18 05:00 - Constitutional Appears: No Acute Distress - Head Exam Head Exam: ATRAUMATIC, NORMAL INSPECTION - Eye Exam Eye Exam: EOMI, PERRL - ENT Exam ENT Exam: Mucous Membranes Moist - Neck Exam Neck Exam: Full ROM, Normal Inspection. absent: Meningismus, Tenderness - Respiratory Exam Respiratory Exam: Clear to Ausculation Bilateral, NORMAL BREATHING PATTERN - Cardiovascular Exam Cardiovascular Exam: +S1, +S2 - GI/Abdominal Exam GI & Abdominal Exam: Soft. absent: Guarding, Rigid, Tenderness - Extremities Exam Extremities Exam: Full ROM. absent: Calf Tenderness, Pedal Edema - Neurological Exam Neurological Exam: Alert, Awake, Oriented x3 - Psychiatric Exam Psychiatric exam: Normal Affect, Normal Mood Assessment and Plan - Assessment and Plan (Free Text) Assessment: 78 y/o F with a PMHx of HTN and HLD was admitted for evaluation and management of syncope. --Head CT: No intracranial mass, hemorrhage or evidence of acute infarct. --Troponin negative x2. --MRI Brain unremarkable. PLAN: >Syncope --Afebrile, VSS, tolerating PO --Cardiology on board, Dr Giles --Neurology on board, Dr Antony --F/U final report for US bilateral carotids and Echocardiogram thyroid panel ordered --Vestibular Physical therapy ordered. --Cardiac stress test today. >Pre-diabetes --HbA1c 5.9-elevated but safe for her age group. --Lifestyle healthy modification reinforced. >Mild normocytic anemia --Hgb 11.1-low. (Base line, same range in 2017) --Possibly dietary deficiency, vitamin B12 is low. >Leukopenia/Neutropenia --Likely baseline. --WBC 4.7 --F/U HIV. >HLD --Home meds resumed >Vitamin D deficiency --home meds resumed. >Vitamin B12 deficiency --IM Cyanocobalamin daily >DVT Prophylaxis --Lovenox SC daily. Case discussed with Dr Jennifer Hollis PGY-2 <Tirso Rodriguez - Last Filed: 06/11/18 11:38> Objective - Vital Signs/Intake and Output Vital Signs (last 24 hours): Temp Pulse Resp BP Pulse Ox 98.2 F 62 18 121/72 100 06/11/18 08:00 06/11/18 08:00 06/11/18 08:00 06/11/18 08:00 06/11/18 08:00 - Medications Medications: Current Medications Acetaminophen (Tylenol 325mg Tab) 650 mg PO Q4 PRN PRN Reason: Pain, severe (8-10) Aspirin (Ecotrin) 81 mg PO Q48H [facility] Last Admin: 06/09/18 21:49 Dose: 81 mg Atorvastatin Calcium (Lipitor) 10 mg PO HS [facility] Last Admin: 06/10/18 21:13 Dose: 10 mg Cyanocobalamin (Vitamin B12 1000 Mcg/Ml Inj) 1,000 mcg SC DAILY [facility] Last Admin: 06/11/18 09:25 Dose: 1,000 mcg Enoxaparin Sodium (Lovenox) 40 mg SC DAILY [facility]; Protocol Last Admin: 06/11/18 09:24 Dose: 40 mg Ergocalciferol (Drisdol 50,000 Intl Units Cap) 1 cap PO SUN [facility] Last Admin: 06/11/18 09:24 Dose: 1 cap Meclizine HCl (Antivert) 25 mg PO Q8 PRN PRN Reason: Dizziness Timolol Maleate (Timoptic 0.5% Oph Soln) 1 drop OU DAILY [facility] Last Admin: 06/11/18 09:24 Dose: 1 drop - Labs Labs: 06/08/18 05:00 06/08/18 05:00 Assessment and Plan - Assessment and Plan (Free Text) Assessment: Patient was personally seen and examined by me in rounds with residents. Available labs and diagnostic data reviewed. Case, Patient's condition and management plan discussed with residents in rounds. Agree with resident's progress note. Plan: As ordered.
[2018-06-08 10:09] LABS: % IRON SATURATION 24 % (20-55); IRON 80 ug/dL (37-170); TOTAL IRON BINDING CAPACITY 338 ug/dL (250-450)
--- NOTE | 2018-06-08 10:49 | PCM.EEG ---
Electroencephalogram Report - Electroencephalogram Report Procedure Date: 06/07/18 Medication: ASA, Meclizine, Atenolol Interpretation: Technical Information: This was a 16 -channel EEG, 1-channel EKG routine EEG performed using an [employer] machine. Electrodes were applied using the 10/20 international placement system. Start; 14;56 End; 15;41 Total 45 minutes. Clinical Information: syncope During resting wakefulness there was a symmetric posterior dominant rhythm at 8.5-9.5 Hz, 30-50 uV, which was reactive to eye opening and closing. Drowsiness (15;15) was associated with fragmentation of the posterior dominant rhythm and with slow roving eye movements. Light sleep was not recorded. Hyperventilation was not performed. Photic stimulation was performed and there were no changes on the record. Focal abnormality; none ECG was associated with a normal sinus rhythm. Impression: This is a normal awake and drowsy electroencephalogram.
--- NOTE | 2018-06-08 11:00 | US ---
Date of service: 06/07/2018 PROCEDURE: Duplex ultrasound of the carotid and vertebral arteries. HISTORY: syncope COMPARISON: None available. TECHNIQUE: Grayscale and duplex Doppler evaluation of the cervical carotid and vertebral arteries were performed. The common carotid, carotid bifurcations and cervical ICA and proximal ECA were evaluated. The vertebral arteries were evaluated for gross patency and direction. FINDINGS: RIGHT CAROTID ARTERIES: Common Carotid Artery: Mild but diffuse intimal thickening identified. Maximal flow velocity of 69.7 cm/s. Carotid Bifurcation: Limited calcified plaque is identified at the carotid bulb Internal Carotid Artery:Normal. Maximal flow velocity of 84.0 cm/s. External Carotid Artery (proximal branches): Normal. Maximal flow velocity of 88.2 cm/s. ICA/CCA Ratio: 1.5 LEFT CAROTID ARTERIES: Common Carotid Artery: Mild but diffuse intimal thickening identified. Maximal flow velocity of 105.3 cm/s. Carotid Bifurcation: Trace soft plaque identified at the bulb. Internal Carotid Artery:Normal. Maximal flow velocity of 91.8 cm/s. External Carotid Artery (proximal branches): Normal. Maximal flow velocity of 75.6 cm/s. ICA/CCA Ratio: 1.7 VERTEBRAL ARTERIES: Right Vertebral Artery: Patent. Antegrade flow. Left Vertebral Artery: Patent. Antegrade flow. OTHER FINDINGS: No atherosclerotic calcification present IMPRESSION: No significant stenosis identified at the common or internal carotid arteries bilaterally in the neck. Diffuse mild intimal thickening is noted throughout the bilateral common carotid arteries with limited plaque identified calcified at the right carotid bulb and soft plaque at the left bulb minimally noted.
[2018-06-08] MEDS: Enoxaparin 40 mg Syringe SC SCH (11:22)
--- NOTE | 2018-06-08 14:56 | CARD ---
APPROVED REPORT Date of service: 06/07/2018 Protocol: MODBRUCE Test Type: Stress Nuclear Medications: Cyanocobalamin daily Lovenox sc, Antivert 25mg, ASA 81mg, Lipitor 10mg, Vit B12, Vit D Timoptic 0.5 Medical History: Vertigo, Hypertension, HDL, L breast lumpectomy, Target HR: 141 bpm Resting ECG: normal Resting Heart Rate: 82 bpm Resting Blood Pressure: 138/70mmHg submaximum (85%): 120 bpm TEST SUMMARY [id number]. [id number]. [id number]. [id number]. [id number]. [id number]. [id number]/70.0. [id number]/70.0. POST EXERCISE Reason for Termination: Target heart rate achieved Target HR: No Max HR: 125 bpm 89% of Maximum Predicted HR: 141 bpm Exercise duration: 06:49 min:sec, 3 Stage Exercise capacity: 3.8METs Max Blood Pressure: 180/70mmHg Blood Pressure response to exercise: normal resting BP - appropriate response Heart Rate response to exercise: appropriate Chest Pain: No, none Angina index: 0 Arrhythmia: No, none ST Change: No, none Deviation: 0 mm Clinical Indications Under Appropriate Use Criteria Patient history of chest pressure. syncopal attack, hypertension. Stress EKG Interpretation Patient exercised in a modify Santana protocol for a total of 6.49 minutes. No chest pain was reported. No significant st or t waves changes noticed. RESTING ECG Rhythm: Sinus Conduction: Normal Arrhythmias: None Repolarization: Normal STRESS ECG Rhythm: Sinus Conduction: Normal Arrhythmias: None Repolarization: Normal ST-Segment changes: none EXAM: Myocardial Perfusion REST/STRESS Image QualityGood Imaging Protocol The imaging protocol used to acquire images was Rest Tc-99m/stress Tc-99m 1 day Rest Spect myocardial perfusion imaging was performed in supine position 177 minutes following the injection of 30 mCi of Tc-99 Myoview. Time of rest injection: 12:18 Time of rest imagin:57 At peak stress, the patient was injected intravenously with 10mCi of Tc-99 tetrofosmin after an infusion time of minutes and seconds. Time of stress injection: 10:10 Time of stress imagin:01 Gated Stress Spect was performed 111 minutes after intravenous Tc-99 Myoview injection. The images were gated to evaluate regional wall motion and calculate ventricular ejection fraction. NUCLEAR IMAGE INTERPRETATION Study quality was excellent. Left Ventricular size was Normal at Rest and Stress. Lung uptake was Normal. Left Ventricular ejection fraction is 58%. LV Perfusion Abnormal perfusion of the left ventricle. Reversible defect noticed on the apical inferior and anterior as well on the lateral wall of the left ventricle. LAD 7%, LCX 21%, RCA 2% LV Perfusion 1 Perfusion Defect Location: apical anteriorapical inferiorbasal inferior Perfusion Defect Size: Medium (3-4 segments) Perfusion Defect Severity: Moderate Type of Perfusion Defect: Reversible Wall Motion Abnormal wall motion with hypokinesia of the basal inferior wall of the left ventricle and reduction of the LVEF 58% CONCLUSION 1. Abnormal nuclear myoview stress test suggesting x 3 vessel coronary artery disease 2. Abnormal mugga scan with mild reduction of the LVEF 58% and hypokinesia of the basal inferior wall of the left ventricle. Recommendation Further study recommended (cardiac catheterization) if clincially indicated.
--- NOTE | 2018-06-08 18:07 | CP.PCM.PN ---
Subjective - Date & Time of Evaluation Date of Evaluation: 06/08/18 Time of Evaluation: 18:06 - Subjective Subjective: stress test abnormal with concern for mutlivessel CAD Objective - Vital Signs/Intake and Output Vital Signs (last 24 hours): Temp Pulse Resp BP Pulse Ox 97.3 F L 59 L 18 115/71 97 06/08/18 16:48 06/08/18 16:48 06/08/18 16:48 06/08/18 16:48 06/08/18 16:48 - Medications Medications: Current Medications Acetaminophen (Tylenol 325mg Tab) 650 mg PO Q4 PRN PRN Reason: Pain, severe (8-10) Aspirin (Ecotrin) 81 mg PO Q48H [facility] Last Admin: 06/07/18 21:32 Dose: 81 mg Atorvastatin Calcium (Lipitor) 10 mg PO HS [facility] Last Admin: 06/07/18 21:32 Dose: 10 mg Cyanocobalamin (Vitamin B12 1000 Mcg/Ml Inj) 1,000 mcg SC DAILY [facility] Last Admin: 06/08/18 14:35 Dose: 1,000 mcg Enoxaparin Sodium (Lovenox) 40 mg SC DAILY [facility]; Protocol Last Admin: 06/08/18 11:22 Dose: 40 mg Ergocalciferol (Drisdol 50,000 Intl Units Cap) 1 cap PO SUN [facility] Meclizine HCl (Antivert) 25 mg PO Q8 PRN PRN Reason: Dizziness Timolol Maleate (Timoptic 0.5% Ophth Soln) 1 drop OU DAILY [facility] Last Admin: 06/08/18 11:22 Dose: 1 drop - Labs Labs: 06/08/18 05:00 06/08/18 05:00 - Constitutional Appears: Well - Head Exam Head Exam: ATRAUMATIC, NORMAL INSPECTION, NORMOCEPHALIC - Eye Exam Eye Exam: EOMI, Normal appearance, PERRL Pupil Exam: NORMAL ACCOMODATION, PERRL - ENT Exam ENT Exam: Mucous Membranes Moist, Normal Exam - Neck Exam Neck Exam: Full ROM, Normal Inspection. absent: Lymphadenopathy - Respiratory Exam Respiratory Exam: Clear to Ausculation Bilateral, NORMAL BREATHING PATTERN - Cardiovascular Exam Cardiovascular Exam: REGULAR RHYTHM, +S1, +S2. absent: Murmur - GI/Abdominal Exam GI & Abdominal Exam: Soft, Normal Bowel Sounds. absent: Tenderness - Extremities Exam Extremities Exam: Full ROM, Normal Capillary Refill, Normal Inspection. absent: Joint Swelling, Pedal Edema - Back Exam Back Exam: NORMAL INSPECTION - Neurological Exam Neurological Exam: Alert, Awake, CN II-XII Intact, Normal Gait, Oriented x3 - Psychiatric Exam Psychiatric exam: Normal Affect, Normal Mood - Skin Skin Exam: Dry, Intact, Normal Color, Warm Assessment and Plan (1) Syncope Assessment & Plan: etiology ? MVD stress test abnl consider cardiac cath will discuss with patient Status: Acute (2) HTN (hypertension) Status: Acute (3) Contusion, lip Status: Acute (4) Knee contusion Status: Acute (5) Pain of left lower extremity Status: Acute
--- NOTE | 2018-06-09 12:15 | CP.PCM.PN ---
<Tim Hollis - Last Filed: 06/09/18 12:12> Subjective - Date & Time of Evaluation Date of Evaluation: 06/09/18 Time of Evaluation: 06:50 - Subjective Subjective: 78 y/o F was transferred tp [facility] (formerly [facility]) for cath procedure. Cardiac stress test was abnormal with concern for mutlivessel CAD. Pt remained afebrile overnight. Objective - Vital Signs/Intake and Output Vital Signs (last 24 hours): Temp Pulse Resp BP Pulse Ox 98.3 F 61 18 108/61 98 06/09/18 04:49 06/09/18 04:49 06/09/18 04:49 06/09/18 04:49 06/09/18 04:49 - Medications Medications: Current Medications Acetaminophen (Tylenol 325mg Tab) 650 mg PO Q4 PRN PRN Reason: Pain, severe (8-10) Aspirin (Ecotrin) 81 mg PO Q48H [facility] Last Admin: 06/07/18 21:32 Dose: 81 mg Atorvastatin Calcium (Lipitor) 10 mg PO HS [facility] Last Admin: 06/08/18 21:45 Dose: 10 mg Cyanocobalamin (Vitamin B12 1000 Mcg/Ml Inj) 1,000 mcg SC DAILY [facility] Last Admin: 06/08/18 14:35 Dose: 1,000 mcg Enoxaparin Sodium (Lovenox) 40 mg SC DAILY [facility]; Protocol Last Admin: 06/08/18 11:22 Dose: 40 mg Ergocalciferol (Drisdol 50,000 Intl Units Cap) 1 cap PO SUN [facility] Meclizine HCl (Antivert) 25 mg PO Q8 PRN PRN Reason: Dizziness Timolol Maleate (Timoptic 0.5% Ophth Soln) 1 drop OU DAILY [facility] Last Admin: 06/08/18 11:22 Dose: 1 drop - Labs Labs: 06/08/18 05:00 06/08/18 05:00 - Constitutional Appears: No Acute Distress - Head Exam Head Exam: ATRAUMATIC, NORMAL INSPECTION - Eye Exam Eye Exam: Normal appearance - Neck Exam Neck Exam: Full ROM, Normal Inspection - Respiratory Exam Respiratory Exam: NORMAL BREATHING PATTERN - Cardiovascular Exam Cardiovascular Exam: +S1, +S2 - GI/Abdominal Exam GI & Abdominal Exam: Soft. absent: Distended - Extremities Exam Extremities Exam: Normal Inspection - Neurological Exam Neurological Exam: Alert, Awake, Oriented x3 Assessment and Plan - Assessment and Plan (Free Text) Assessment: 78 y/o F with a PMHx of HTN and HLD was admitted for evaluation and management of syncope. --Head CT: No intracranial mass, hemorrhage or evidence of acute infarct. --Troponin negative x2. --MRI Brain unremarkable. PLAN: >Coronary Artery Disease --Abnormal cardiac stress test. --Cardiac cath procedure today at [facility] --Will re-evaluate upon returning here. >Syncope --Afebrile, VSS, tolerating PO --Cardiology on board, Dr Giles --Neurology on board, Dr Antony --Vestibular Physical Therapy as outpatient recommended. >Pre-diabetes --HbA1c 5.9-elevated but safe for her age group. >Mild normocytic anemia --Hgb 11.1-low. (Base line, same range in 2017) --Possibly dietary deficiency, vitamin B12 is low. >Leukopenia/Neutropenia --Likely baseline. --F/U HIV. >HLD --Home meds resumed >Vitamin D deficiency --home meds resumed. >Vitamin B12 deficiency --IM Cyanocobalamin daily >DVT Prophylaxis --Lovenox SC daily. Case discussed with Dr Jenniefr Hollis PGY-2 <Tirso Rodriguez - Last Filed: 06/11/18 11:35> Objective - Vital Signs/Intake and Output Vital Signs (last 24 hours): Temp Pulse Resp BP Pulse Ox 98.2 F 62 18 121/72 100 06/11/18 08:00 06/11/18 08:00 06/11/18 08:00 06/11/18 08:00 06/11/18 08:00 - Medications Medications: Current Medications Acetaminophen (Tylenol 325mg Tab) 650 mg PO Q4 PRN PRN Reason: Pain, severe (8-10) Aspirin (Ecotrin) 81 mg PO Q48H [facility] Last Admin: 06/09/18 21:49 Dose: 81 mg Atorvastatin Calcium (Lipitor) 10 mg PO HS [facility] Last Admin: 06/10/18 21:13 Dose: 10 mg Cyanocobalamin (Vitamin B12 1000 Mcg/Ml Inj) 1,000 mcg SC DAILY [facility] Last Admin: 06/11/18 09:25 Dose: 1,000 mcg Enoxaparin Sodium (Lovenox) 40 mg SC DAILY [facility]; Protocol Last Admin: 06/11/18 09:24 Dose: 40 mg Ergocalciferol (Drisdol 50,000 Intl Units Cap) 1 cap PO SUN [facility] Last Admin: 06/11/18 09:24 Dose: 1 cap Meclizine HCl (Antivert) 25 mg PO Q8 PRN PRN Reason: Dizziness Timolol Maleate (Timoptic 0.5% Ophth Soln) 1 drop OU DAILY [facility] Last Admin: 06/11/18 09:24 Dose: 1 drop - Labs Labs: 06/08/18 05:00 06/08/18 05:00 Assessment and Plan - Assessment and Plan (Free Text) Assessment: Patient was personally seen and examined by me in rounds with residents. Available labs and diagnostic data reviewed. Case, Patient's condition and management plan discussed with residents in rounds. Agree with resident's progress note. Plan: As ordered.
--- NOTE | 2018-06-09 13:32 | CP.PCM.PN ---
Subjective - Date & Time of Evaluation Date of Evaluation: 06/09/18 Time of Evaluation: 13:31 - Subjective Subjective: s/p LHcx showing mid LAD myocardial bridge Objective - Vital Signs/Intake and Output Vital Signs (last 24 hours): Temp Pulse Resp BP Pulse Ox 98.3 F 61 18 108/61 98 06/09/18 04:49 06/09/18 04:49 06/09/18 04:49 06/09/18 04:49 06/09/18 04:49 - Medications Medications: Current Medications Acetaminophen (Tylenol 325mg Tab) 650 mg PO Q4 PRN PRN Reason: Pain, severe (8-10) Aspirin (Ecotrin) 81 mg PO Q48H [facility] Last Admin: 06/07/18 21:32 Dose: 81 mg Atorvastatin Calcium (Lipitor) 10 mg PO HS [facility] Last Admin: 06/08/18 21:45 Dose: 10 mg Cyanocobalamin (Vitamin B12 1000 Mcg/Ml Inj) 1,000 mcg SC DAILY [facility] Last Admin: 06/08/18 14:35 Dose: 1,000 mcg Enoxaparin Sodium (Lovenox) 40 mg SC DAILY [facility]; Protocol Last Admin: 06/08/18 11:22 Dose: 40 mg Ergocalciferol (Drisdol 50,000 Intl Units Cap) 1 cap PO SUN [facility] Meclizine HCl (Antivert) 25 mg PO Q8 PRN PRN Reason: Dizziness Timolol Maleate (Timoptic 0.5% Ophth Soln) 1 drop OU DAILY [facility] Last Admin: 06/08/18 11:22 Dose: 1 drop - Labs Labs: 06/08/18 05:00 06/08/18 05:00 - Constitutional Appears: Well - Head Exam Head Exam: ATRAUMATIC, NORMAL INSPECTION, NORMOCEPHALIC - Eye Exam Eye Exam: EOMI, Normal appearance, PERRL Pupil Exam: NORMAL ACCOMODATION, PERRL - ENT Exam ENT Exam: Mucous Membranes Moist, Normal Exam - Neck Exam Neck Exam: Full ROM, Normal Inspection. absent: Lymphadenopathy - Respiratory Exam Respiratory Exam: Clear to Ausculation Bilateral, NORMAL BREATHING PATTERN - Cardiovascular Exam Cardiovascular Exam: REGULAR RHYTHM, +S1, +S2. absent: Murmur - GI/Abdominal Exam GI & Abdominal Exam: Soft, Normal Bowel Sounds. absent: Tenderness - Extremities Exam Extremities Exam: Full ROM, Normal Capillary Refill, Normal Inspection. absent: Joint Swelling, Pedal Edema - Back Exam Back Exam: NORMAL INSPECTION - Neurological Exam Neurological Exam: Alert, Awake, CN II-XII Intact, Normal Gait, Oriented x3 - Psychiatric Exam Psychiatric exam: Normal Affect, Normal Mood - Skin Skin Exam: Dry, Intact, Normal Color, Warm Assessment and Plan (1) Coronary-myocardial bridge Assessment & Plan: low dose BB ( toprol xl 25mg po daily ) stable to dc home later today Status: Acute (2) Syncope Status: Acute (3) HTN (hypertension) Status: Acute (4) Contusion, lip Status: Acute (5) Knee contusion Status: Acute (6) Pain of left lower extremity Status: Acute
[2018-06-09] MEDS: Enoxaparin 40 mg Syringe SC SCH (17:24)
--- NOTE | 2018-06-09 18:48 | CARD ---
APPROVED REPORT Date of service: 06/07/2018 EXAM: Two-dimensional and M-mode echocardiogram with Doppler and color Doppler. Other Information Quality : GoodRhythm : NSR INDICATION Syncope 2D DIMENSIONS IVSd0.74 (0.7-1.1cm)LVDd5.57 (3.9-5.9cm) LVOT Diameter1.77 (1.8-2.4cm)PWd1.06 (0.7-1.1cm) IVSs1.29 (0.8-1.2cm)LVDs3.13 (2.5-4.0cm) FS (%) 43.8 %PWs0.97 (0.8-1.2cm) M-Mode DIMENSIONS Left Atrium (MM)4.62 (2.5-4.0cm)IVSd0.85 (0.7-1.1cm) Aortic Root2.76 (2.2-3.7cm)LVDd6.00 (4.0-5.6cm) Aortic Cusp Exc.2.21 (1.5-2.0cm)PWd1.06 (0.7-1.1cm) IVSs1.47 cmFS (%) 39 % LVDs3.68 (2.0-3.8cm)PWs1.47 cm Aortic Valve AoV Peak Ehauubyv887.4cm/sAoV VTI30.9cmAO Peak GR.11mmHg LVOT Peak Hlvxgxko173.4cm/sLVOT VTI24.14cmAO Mean GR.6mmHg SARAHY (VMAX)1.44jd9GAG (VTI)1.13za8GW P 1/2 Xwct322jx Mitral Valve MV E Vgfznjnt20.7cm/sMV DECEL [id number] A Kirlhbus30.4cm/s MV NKB91owO/A ratio0.7MVA (PHT)2.88cm2 TDI Lateral E' Peak V8.64cm/sMedial E' Peak V6.76cm/sE/Lateral E'6.6 E/Medial E'8.4 Tricuspid Valve TR Peak Wmqowmft474zn/sRAP RFISBPGI11rsJnBO Peak Gr.28mmHg UWKO96yrAl LEFT VENTRICLE The left ventricle is normal size. There is normal left ventricular wall thickness. The left ventricular systolic function is normal. The estimated ejection fraction is 55-60% No regional wall motion abnormalities noted.. Transmitral Doppler flow pattern is Grade I-abnormal relaxation pattern. No left ventricle thrombus noted on this study. There is no ventricular septal defect visualized. There is no left ventricular aneurysm. There is no mass noted in the left ventricle. RIGHT VENTRICLE The right ventricle is normal size. There is normal right ventricular wall thickness. The right ventricular systolic function is normal. ATRIA The left atrium is mildly dilated. The right atrium size is normal. The interatrial septum is intact with no evidence for an atrial septal defect. AORTIC VALVE The aortic valve is normal in structure. Mild aortic regurgitation is present. There is no aortic valvular stenosis. There is no aortic valvular vegetation. MITRAL VALVE The mitral valve is normal in structure. There is no evidence of mitral valve prolapse. There is no mitral valve stenosis. There is mild mitral valve regurgitation noted. TRICUSPID VALVE The tricuspid valve is normal in structure. There is mild tricuspid valve regurgitation noted. RVSP is calculated at 32 mm Hg. There is no tricuspid valve prolapse or vegetation. There is no tricuspid valve stenosis. PULMONIC VALVE The pulmonary valve is normal in structure. There is no pulmonic valvular regurgitation. There is no pulmonic valvular stenosis. GREAT VESSELS The aortic root is normal in size. The ascending aorta is normal in size. The pulmonary artery is normal. The IVC is normal in size and collapses >50% with inspiration. PERICARDIAL EFFUSION There is no pericardial effusion. There is no pleural effusion. <Conclusion> The estimated ejection fraction is 55-60% Transmitral Doppler flow pattern is Grade I-abnormal relaxation pattern. The left atrium is mildly dilated. Mild aortic regurgitation is present. There is mild mitral valve regurgitation noted. There is mild tricuspid valve regurgitation noted. RVSP is calculated at 32 mm Hg.
[2018-06-10] MEDS: Enoxaparin 40 mg Syringe SC SCH (09:15)
[2018-06-11 04:38] VITALS: O2SAT 100
--- NOTE | 2018-06-11 07:46 | PN ---
DATE: 06/11/2018 SUBJECTIVE: The patient seen and examined. Interim events noted. Consults noted and appreciated. Pulmonary followup and intervention noted and appreciated. The patient remains in progressive care unit with telemetry monitoring. The patient is sleeping, arousable, feels okay. Denies any chest pain or shortness of breath but does feel that she needs oxygen and gets shortness of breath without cough. PHYSICAL EXAMINATION: GENERAL: The patient is in no acute distress. VITAL SIGNS: Stable. HEART: S1 and S2, normal and regular. LUNGS: Good bilateral air exchange, no rales, no rhonchi. ABDOMEN: Soft, nontender, no organomegaly. No fluid. Bowel sounds are present and normal. EXTREMITIES: No calf swelling. No tenderness, no acute ischemia. No edema. CENTRAL NERVOUS SYSTEM: Exam is essentially unchanged. DIAGNOSTICS DATA: Available diagnostic data reviewed. Telemetry monitoring does not show significant arrhythmias. Overall, the patient's general medical condition is stable and improving. Plan as ordered. Tirso Rodriguez MD
[2018-06-11 08:13] VITALS: BP 121/72; PULSE 62; RESP 18; TEMP 98.2
[2018-06-11] MEDS ORDERED: Ergocalciferol 50,000 Intl Units Cap PO SCH (09:00)
[2018-06-11] MEDS: Enoxaparin 40 mg Syringe SC SCH (09:24)
--- NOTE | 2018-06-12 08:24 | PN ---
DATE: 06/10/2018 SUBJECTIVE: The patient seen and examined. Interim events noted. Consults noted and appreciated. Cardiology followup and procedure notes are noted and appreciated. The patient had cardiac cath done yesterday, which revealed minimal coronary artery disease. Currently, the patient feels okay. Denies any chest pain, shortness of breath, or dizziness. The patient is ambulating, doing her ADL without any problem. PHYSICAL EXAMINATION: GENERAL: The patient is in no acute distress. VITAL SIGNS: Stable. HEART: S1, S2 normal, regular. LUNGS: Good bilateral air exchange. ABDOMEN: Soft, nontender. EXTREMITIES: No edema. No calf swelling. No tenderness. No acute ischemia. CENTRAL NERVOUS SYSTEM: Essentially unchanged. DIAGNOSTIC DATA: Available diagnostic data reviewed. As mentioned earlier, cardiac cath did not show any significant coronary artery occlusive disease. Telemetry monitoring does not show significant arrhythmia. ASSESSMENT AND PLAN: Overall, the patient is clinically stable and improving. Plan as ordered. Tirso Rodriguez MD
--- NOTE | 2018-06-12 08:27 | PN ---
DATE: 06/11/2018 Please delete the dictation on this patient I just did. This belongs to other patient. SUBJECTIVE: The patient seen and examined. Interim events noted. The patient remains in progressive care unit with telemetry monitoring. The patient feels okay. Denies any specific complaint of chest pain or shortness of breath, dizziness, improved. PHYSICAL EXAMINATION: GENERAL: The patient is in no acute distress. VITAL SIGNS: Stable. No orthostatic changes. HEART: S1 and S2 regular. LUNGS: Good bilateral air exchange. ABDOMEN: Soft, nontender. EXTREMITIES: No edema, calf swelling. No tenderness, no acute ischemia. CENTRAL NERVOUS SYSTEM: Exam is essentially unchanged. DIAGNOSTIC DATA: Available diagnostic data reviewed. Telemetry monitoring did not show significant arrhythmias. Overall, the patient's general medical condition is stable and improving. Plan as ordered. Tirso Rodriguez MD
== END 2018-06-11 14:00 | disposition home or self-care (01) | DRG 287 ==
LOC: H.ER 11:06 → INTOOBSV 13:26 → H.ERHOLD 13:26 → H.TEL 15:53 → OBSVTOIN 06-08 14:17
PROVIDERS: ADMIT Internal Medicine; ATTEND Internal Medicine
PROC: 4A023N7 Measurement of Cardiac Sampling and Pressure, Left Heart, Percutaneous Approach (ICD-10-PCS; principal; 2018-06-09)
PROC: B206YZZ Plain Radiography of Right and Left Heart using Other Contrast (ICD-10-PCS; 2018-06-09)
DX: R55 Syncope and collapse (principal); Q24.5 Malformation of coronary vessels; E78.00 Pure hypercholesterolemia, unspecified; E78.5 Hyperlipidemia, unspecified; I10 Essential (primary) hypertension; S00.531A Contusion of lip, initial encounter; W19.XXXA Unspecified fall, initial encounter; Z79.899 Other long term (current) drug therapy; R90.82 White matter disease, unspecified; S80.02XA Contusion of left knee, initial encounter; I25.10 Atherosclerotic heart disease of native coronary artery without angina pectoris; D64.9 Anemia, unspecified; D72.819 Decreased white blood cell count, unspecified; E53.8 Deficiency of other specified B group vitamins; E55.9 Vitamin D deficiency, unspecified